=== PATIENT | male | born 1940 | race Caucasian/White ===

== ENCOUNTER 2023-05-04 21:15 | Emergency (ER) | payer OTHER ==
[~2023-05-04] VITALS: Ht 188 cm; Wt 84.4 kg
[2023-05-04 21:40] VITALS: BP_SYST 136; PULSE 59; RESP 16; TEMP 97.9; O2SAT 97
[2023-05-04] MEDS ORDERED: KETOROLAC TROMETHAMINE 60 MG/2 ML VIAL IM ONE (23:45)
[2023-05-05] MEDS ORDERED: NAPR-688 PO ×2 (00:16→00:34)
[2023-05-05 00:40] VITALS: BP_SYST 144; PULSE 57; RESP 14; TEMP 97.9; O2SAT 97
== END 2023-05-05 00:40 | disposition home or self-care (01) ==
LOC: SED 21:15
DX: S62.91XA Unspecified fracture of right hand, initial encounter for closed fracture (principal); Z79.899 Other long term (current) drug therapy; W18.40XA Slipping, tripping and stumbling without falling, unspecified, initial encounter; Y93.89 Activity, other specified; Y92.89 Other specified places as the place of occurrence of the external cause; Y99.8 Other external cause status
CPT/HCPCS: 99285; 70450; 71045; 73110; 73564; 72125; 74176; 96372; 76376; J1885